=== PATIENT | male | born 1965 | race Caucasian/White ===

== ENCOUNTER 2017-09-13 20:30 | Outpatient (CLI) | payer MEDICARE | END 2017-09-13 20:31 | disposition home or self-care (01) | LOC: SLEEPLAB 20:30 | PROVIDERS: ATTEND Internal Medicine Critical Care Medicine | DX: G47.33 Obstructive sleep apnea (adult) (pediatric) (principal); R53.83 Other fatigue; G47.10 Hypersomnia, unspecified; E66.9 Obesity, unspecified | CPT/HCPCS: 95811 ==

== ENCOUNTER → 2017-12-03 | Day surgery (SDC) | payer MEDICARE ==
[2017-12-02 13:17] VITALS: BMI 30.3
[~2017-12-03] MED LIST: Albuterol Sulfate HFA (OR ONLY) ONE; Bacitracin Zinc Ointment 30 gm TUBE ONE; Fentanyl 250 MCG/5 ML VIAL ONE; Ferric Subsulfate 8 ML BOT ONE; Hydrocodone-Acetamin 15 ML UDCUP ONE; Lidocaine 1% w/Epinephrine 1:100K 30 ML VIAL ONE; Meperidine HCl/PF 25 MG/ML VIAL ONE; Midazolam HCl 2 mg/2 ml Vial ONE; Morphine 4 MG/ML VIAL ONE; Oxymetazoline HCl 0.05% ( 15 ML ) ONE
--- NOTE | 2017-12-04 12:36 | OP ---
DATE OF PROCEDURE: 12/03/2017 PREOPERATIVE DIAGNOSES: 1. Chronic rhinosinusitis. 2. Nasal septal deviation. 3. Bilateral inferior turbinate hypertrophy. 4. Chronic adenotonsillitis. 5. Adenotonsillar hypertrophy. 6. Uvula hypertrophy. 7. Obstructive sleep apnea. POSTOPERATIVE DIAGNOSES: 1. Chronic rhinosinusitis. 2. Nasal septal deviation. 3. Bilateral inferior turbinate hypertrophy. 4. Chronic adenotonsillitis. 5. Adenotonsillar hypertrophy. 6. Uvula hypertrophy. 7. Obstructive sleep apnea. PROCEDURES: 1. Bilateral endoscopic sinus surgery, total ethmoidectomies. 2. Bilateral endoscopic sinus surgery, maxillary antrostomies. 3. Bilateral endoscopic sinus surgery, frontal sinusotomy. 4. Bilateral endoscopic sinus surgery, sphenoidotomies. 5. Nasal septoplasty. 6. Bilateral inferior turbinate submucosal resection. 7. Tonsillectomy and adenoidectomy. 8. Uvulectomy. SURGEON: Dino Berkowitz M.D. ESTIMATED BLOOD LOSS: 50 mL COMPLICATIONS: None. ANESTHESIA: GETA. PROCEDURE IN DETAIL: After consent was obtained, the patient was identified, brought to the operatin g room, and placed on the operating table in the supine position. General endotracheal anesthesia an d intravenous access was obtained and we proceeded with positioning the patient for oropharyngeal lane kaci. Oropharyngeal exposure was obtained with a Carla-Roberto Carlos mouth gag after a head drape was placed and secured with a towel clip. The Carla-Roberto Carlos mouth gag was then suspended from the Gerard tray and palatal elevation was achieved with a red rubber catheter. The right tonsil was addressed first. We used a curved Allis to grasp the tonsil and retract it medially as an anterior pillar incision was m siddharth. The retrotonsillar fascial plane was then established and blunt dissection was performed with t he suction cautery. Blood vessels were anticipated, identified, and cauterized as they were encounte red. Ultimately, dissection was carried to the posterior tonsillar pillar mucosa which was incised h emostatically, as well as the base of tongue connection. The tonsil was then passed off as a specime n and bleeding points within the tonsillar bed were cauterized under direct visualization. We subseq uently turned our attention to the contralateral side, where using a similar technique, a near identi adina procedure was performed. Again, the tonsil was grasped and retracted medially with a curved Fahad s. The retrotonsillar fascial plane was established and while the anterior pillar was retracted medi ally, the hemostatic blunt dissection of the tonsil with a suction cautery was performed with blood v essels anticipated, identified, and cauterized as they were encountered. Again, dissection continued to the base of tongue and posterior tonsillar pillar mucosa which was incised in a hemostatic fashio n. The tonsillar beds were then carefully inspected and bleeding points were identified and cauteriz ed with a suction cautery. After this portion of the procedure, hemostasis was completely obtained. Under direct mirror visualization, we visualized the adenoid pad. Under direct mirror visualization , we removed the bulk of the adenoid tissue with the adenoid curette. We then packed the nasopharynx for an appropriate period of time with Felix-Synephrine saturated tonsillar sponges. After a period o f observation, we removed the pack. Under indirect mirror visualization, we obtained hemostasis and v aporization of residual adenoid tissue with electrocautery. The patient's oral cavity was copiously irrigated with iced saline and subsequently suctioned. After completion of the procedure, the nasal cavity and oropharynx were irrigated and suctioned as were the gastric contents. The patient was the n awakened and transferred to the recovery room where the patient remained in stable condition prior to discharge to Day Stay. Following this, multiple measurements were taken of the uvula and the small portions of the soft hyun te when they were then excised ensuring adequate palatal length to the posterior pharyngeal wall usin g the Bovie electrocautery. The mucosal edges were then reapproximated with a chromic gut stitch. The patient was taken to the operating room and placed supine on the table. General endotracheal ane sthesia was obtained by the Anesthesia staff. Tube was secured in the left lower lip. Patient was t hen placed in the beach chair position, and Afrin pledgets were placed in the nasal cavity. Injectio ns of 1% lidocaine with 1:100,000 epinephrine were made into the nasal septum as well as the inferior turbinates. Patient was then prepped and draped in standard surgical fashion for nasal surgery. Fo llowing this, the Afrin pledgets were removed. A [place] incision was made on the left nasal septum. Submucoperichondrial dissection was performed. The deviated portions of the septum included portio ns of the cartilage and the bony septum. These isolated areas were removed using three cutting ronge urs. There was noted to be a large dorsal and caudal strut, left intact for support of the nose. Th e mucoperichondrial flaps were then reapproximated using a 4-0 gut stitch. Any straight pieces of ca rtilage were crushed prior to this and placed between the mucoperichondrial flaps. Following this, t he inferior turbinates were then punctured with a submucosal coblation wand, and submucosal coblation s were performed of multiple areas of the inferior portion of the anterior inferior turbinate. Please note that the submucosal microdebrider was used to submucosally resect the anterior and inferi or portions of the inferior turbinates bilaterally. Following this, inferior turbinates were lateral ly fractured with a [place] elevator. Following this, the 0 degree scope was advanced into the middle meatus. The middle turbinates were identified and were gently medialized using the [place] elevator. The uncinate process was identified and anteriorly fractured using the ball-ended probe bilaterally. Following this, the uncinate process removed bilaterally using the 0 degree microdebrider and upbiti ng [place] forceps. Following this, the maxillary ostia was identified bilaterally using the ball- ended probe and was gently widened using the microdebrider and straight [place] forceps bilaterally . Following this, the ethmoidal bulla was punctured on its medial and inferior aspect and was remove d using the microdebrider and upbiting [place] forceps. Following this, the grand lamella was iden tified and was punctured into the posterior ethmoidal cells using the microdebrider. Working from po sterior to anterior, the ethmoidal cells were opened in a mucosal-sparing technique. Following this, the sphenoid sinuses and the ostia were identified bilaterally through the previous ethmoidectomies and the sphenoid sinus ostia was widened medially and inferiorly using the microdebrider. This was p erformed bilaterally. Following this, the 45-degree scope and the 40-degree microdebrider blade was used to further open the frontal recess cells and frontal sinus ostia bilaterally. Following this, t he nasal cavity was irrigated. MeroPacks were placed in the middle meatus. Zuniga splints were place d and secured. The patient tolerated the procedure well.
--- NOTE | 2017-12-04 16:58 | EKG ---
Test Reason : PREOP Blood Pressure : / mmHG Vent. Rate : 071 BPM Atrial Rate : 071 BPM P-R Int : 156 ms QRS Dur : 094 ms QT Int : 422 ms P-R-T Axes : 019 031 040 degrees QTc Int : 458 ms Normal sinus rhythm Low voltage QRS Borderline ECG Confirmed by DANTE RUEDA ([id number]) on 12/04/2017 4:57:48 PM Referred By: PHILIP Confirmed By:DANTE RUEDA
== END ==
LOC: SDC 09:09
PROVIDERS: ATTEND Otolaryngology Plastic Surgery within the Head & Neck
PROC: 0CTPXZZ Resection of Tonsils, External Approach (ICD-10-PCS; principal; 2017-12-03)
PROC: 0CTQXZZ Resection of Adenoids, External Approach (ICD-10-PCS; 2017-12-03)
PROC: 0CBNXZZ Excision of Uvula, External Approach (ICD-10-PCS; 2017-12-03)
PROC: 09SM0ZZ Reposition Nasal Septum, Open Approach (ICD-10-PCS; 2017-12-03)
PROC: 09SL8ZZ Reposition Nasal Turbinate, Via Natural or Artificial Opening Endoscopic (ICD-10-PCS; 2017-12-03)
PROC: 099T8ZZ Drainage of Left Frontal Sinus, Via Natural or Artificial Opening Endoscopic (ICD-10-PCS; 2017-12-03)
PROC: 099W8ZZ Drainage of Right Sphenoid Sinus, Via Natural or Artificial Opening Endoscopic (ICD-10-PCS; 2017-12-03)
PROC: 099X8ZZ Drainage of Left Sphenoid Sinus, Via Natural or Artificial Opening Endoscopic (ICD-10-PCS; 2017-12-03)
PROC: 099Q8ZZ Drainage of Right Maxillary Sinus, Via Natural or Artificial Opening Endoscopic (ICD-10-PCS; 2017-12-03)
PROC: 099R8ZZ Drainage of Left Maxillary Sinus, Via Natural or Artificial Opening Endoscopic (ICD-10-PCS; 2017-12-03)
PROC: 099S8ZZ Drainage of Right Frontal Sinus, Via Natural or Artificial Opening Endoscopic (ICD-10-PCS; 2017-12-03)
PROC: 09TV8ZZ Resection of Left Ethmoid Sinus, Via Natural or Artificial Opening Endoscopic (ICD-10-PCS; 2017-12-03)
PROC: 09TU8ZZ Resection of Right Ethmoid Sinus, Via Natural or Artificial Opening Endoscopic (ICD-10-PCS; 2017-12-03)
DX: J32.9 Chronic sinusitis, unspecified (principal); J34.2 Deviated nasal septum; J34.3 Hypertrophy of nasal turbinates; J35.03 Chronic tonsillitis and adenoiditis; K13.79 Other lesions of oral mucosa; G47.33 Obstructive sleep apnea (adult) (pediatric); F17.210 Nicotine dependence, cigarettes, uncomplicated; Z79.899 Other long term (current) drug therapy; Z88.0 Allergy status to penicillin; Z88.8 Allergy status to other drugs, medicaments and biological substances; Z99.89 Dependence on other enabling machines and devices
CPT/HCPCS: 88304; 93005; 93010; 96374; J0131; J2001; J2175; J2250; J2270; J3010